=== PATIENT | female | born 1995 | race Caucasian/White ===

== ENCOUNTER 2024-03-20 04:04 | Inpatient (IN) | payer BC ==
[2024-03-20] VITALS (29 sets, daily range): BP systolic 105–163; BP diastolic 55–87; PULSE 70–109; TEMP 97.7–98.4
[~2024-03-20] VITALS: Ht 162.6 cm; Wt 77.3 kg
[~2024-03-20 04:04] MED LIST: AMOXICILLIN 8751 TAB PO; BENTYL 20MG20 MG/TAB PO; COLACE 100100 MG/CAP PO; DESOGEN 0.15 MG1 TAB PO; MOTRIN 800800 MG/TAB PO; PERCOCET 325 MG1 TA2 PO; PRENATAL TABLET PO; WELCHOL 625MG625 MG PO; ZOFRAN8 MG PO
--- NOTE | 2024-03-20 04:15 | NUR ---
ARRIVED TO LR4 WITH COMPLAINTS OF GUSH OF CLEAR FLUID APPROX 30 MIN AGO AND CRAMPING. REPORTS ACTIVE FM. NO BLEEDING EXCEPT FOR SMALL SPOTTING WITH GUSH OF FLUID. AMNIO SWAB NEGATIVE. COLLECTED ROM+
[2024-03-20] MEDS ORDERED: LR 1,000 ML IV PRN (04:45)
[2024-03-20] MEDS ORDERED: LR 1,000 ML IV SCH (05:15)
[2024-03-20] MEDS ORDERED: LR & Oxytocin 500 ML IV SCH (05:15)
[2024-03-20] MEDS ORDERED: Penicillin G Potassium 5,000,000 UNITS in NS 100 ML IV ONE (05:15)
--- NOTE | 2024-03-20 05:25 | NUR ---
PT C/O NEED TO HAVE BM. WITH PERMISSION NURSE RECHECKED CERVIX. SMALL CHANGE. PT UP TO BR AND WAS ABLE TO VOID AND PASS STOOL.
[2024-03-20 05:54] LABS: BASO # 0.1 K/mm3 (0.0-0.2); BASO % 0.5 % (0.0-2.0); EOS # 0.2 K/mm3 (0.0-0.7); EOS % 1.6 % (0.0-4.0); GRAN # 7.3 K/mm3 (1.4-6.5); GRAN % 68.7 % (42.2-75.2); HEMATOCRIT 39.2 % (37.0-47.0); HEMOGLOBIN 13.1 g/dl (12.5-16.0); LYMPH # 2.2 K/mm3 (1.2-3.4); LYMPH % 20.9 % (20.0-51.0); MEAN CELL VOLUME 86 fl (80.0-100.0); MEAN CORPUSCULAR HEMOGLOBIN 29 pg (27-31); MEAN CORPUSCULAR HGB CONC 33 g/dl (33.0-37.0); MONO # 0.8 K/mm3 (0.1-0.6); MONO % 7.6 % (1.7-9.3); PLATELET COUNT 195 K/mm3 (130-400); RED BLOOD COUNT 4.58 M/mm3 (4.10-5.30); REDCELL DISTRIBUTION WIDTH-CV 13.5 % (11.5-14.5)
[2024-03-20] MEDS ORDERED: VITAMIN B-610 MG PO (06:19)
[2024-03-20] MEDS ORDERED: ZOLOFT 100MG100 MG PO (06:20)
--- NOTE | 2024-03-20 06:50 | NUR ---
THIS RN ASSUMES CARE OF PT FROM TRAVELER LEYDA CORTEZ.
[2024-03-20] MEDS ORDERED: ROPivacaine PF 0.2% 200 ML IV ONE (08:13)
[2024-03-20] MEDS ORDERED: NS 10 ML IV ONE (08:42)
[2024-03-20] MEDS ORDERED: Lidocaine PF 2% (20 MG/ML) 5 ML VIAL ONE (08:42)
[2024-03-20] MEDS ORDERED: diphenhydrAMINE 25 MG CAP PO PRN (09:00)
[2024-03-20] MEDS ORDERED: diphenhydrAMINE 50 MG/ML 1 ML VIAL IV PRN (09:00)
[2024-03-20] MEDS ORDERED: Ondansetron 4 MG/2 ML VIAL IV PRN (09:00)
[2024-03-20] MEDS ORDERED: ePHEDrine 50 MG/10 ML VIAL IV PRN (09:00)
[2024-03-20] MEDS ORDERED: Naloxone 0.4 MG/ML VIAL IV PRN ×2 (09:00→12:45)
[2024-03-20] MEDS ORDERED: Penicillin G Potassium 2,500,000 UNITS in NS 100 ML IV SCH (09:03)
--- NOTE | 2024-03-20 09:07 | NUR ---
PT SITTING UP ON THE SIDE OF THE BED FOR EPIDURAL PLACEMENT.LR BOLUS INFUSING PER PROTOCOL.BP AND PULSE OX TRACING EVERY 5 MINUTES.EFM AND TOCO TRACING CATEGORY 1. 0825 TEST DOSE ADMINISTERED PER TOSHIA GUY.PT TOLERATED PROCEDURE WELL.
--- NOTE | 2024-03-20 09:08 | NUR ---
DR LAMAS AT BEDSIDE.SVE DILATED 9CM. 0900 AROM PERFORMED WITH CLEAR FLUID.PT TOLERATED PROCEDURE WELL.
[2024-03-20] MEDS ORDERED: Measles/Mumps/Rubella Virus Vaccine Live w Diluent 0.5 ML VIAL SQ SCH (12:45)
[2024-03-20] MEDS ORDERED: Ibuprofen 800 MG TAB PO SCH (12:45)
[2024-03-20] MEDS ORDERED: Mag/Al Hydrox/Simeth Susp 30 ML CUP PO PRN (12:45)
[2024-03-20] MEDS ORDERED: Witch Hazel 50% Pads Bulk TUB TP PRN (12:45)
[2024-03-20] MEDS ORDERED: Acetaminophen 500 MG TAB PO SCH (12:45)
[2024-03-20] MEDS ORDERED: Phenylephrine/Mineral Oil/Petrolatum 57 GM TUBE RC PRN (12:45)
[2024-03-20] MEDS ORDERED: Magnes Hydrox (MOM) 80 MG/ML 30 ML CUP PO PRN (12:45)
[2024-03-20] MEDS ORDERED: Loratadine 10 MG TAB PO PRN (12:45)
--- NOTE | 2024-03-20 13:04 | NUR ---
0990 THIS RN CALLED PT COMPLETE.DR LAMAS NOTIFIED.THIS RN BEGINS PUSHING WITH PT. 1050 DR LAMAS AT BEDSIDE.NOTED THAT BABY IS NOT DESCENDING ADEQUATELY.PHYSICIAN ORDRS TO START PITOCIN AND LABOR DOWN WITH CHANGE OF POSITIONS.PT CHANGED INTO LEFT LATERAL INTO A STIRRUP. 1110 PT MOVED INTO A RIGHT LATERAL STIRRUP POSITION 1130 PT MOVED INTO FLYING COWGIRL POSITION. 1145 DR LAMAS AT BEDSIDE.BABY MADE ADEQUATE PROGRESS IN DESCENT. ROOM PREPARED FOR DELIVERY. ALL APPROPRIATE STAFF NOTIFED. 1203 OF VIABLE MALE .NUCHAL CORD X1 REDUCED BY DR LAMAS.STRONG CRY NOTED AFTER DELIVERY AFTER STIMULATION BY NURSERY.CORD CLAMPED AND CUT BY FATHER OF THE BABY. PLACED ON MATERAL ABDOMEN. CARES ASSUMED BY CHANG SALAZAR RN. 1207 OF INTACT PLACENTA.PITOCIN BOLUS INFUSING PER PROTOCOL. 2ND DEGREE LACERATION REPAIR COMPLETED BY DR LAMAS.LOCHIA WITHIN NORMAL LIMITS.FUNDUS FIRM AT THE UMBILICUS. RED SAMMIE INSERTED BY DR LAMAS WITH 450ML CLEAR YELLOW URINE RETURN.
[2024-03-20] MEDS ORDERED: Sennosides/Docusate 8.6-50 MG TAB PO SCH (17:00)
[2024-03-20] MEDS ORDERED: traZODone 50 MG TAB PO PRN (21:00)
[2024-03-21 02:35] VITALS: BP 112/68; PULSE 76; TEMP 98.1
[2024-03-21 07:00] VITALS: BP 113/72; PULSE 82; TEMP 98.6
[2024-03-21] MEDS ORDERED: Sertraline 100 MG TAB PO SCH (09:00)
[2024-03-21 16:00] VITALS: BP 118/64; PULSE 74
[2024-03-21 22:45] VITALS: BP 113/68; PULSE 78; TEMP 97.9
[2024-03-22 07:15] VITALS: BP 115/68; PULSE 88; TEMP 98
--- NOTE | 2024-03-22 12:00 | NUR ---
DISCHARGE EDUCATION COMPLETED, HEALTH HISTORY GIVEN AND FOLLOW UP APPOINTEMTNS DISCUSSED.
== END 2024-03-22 12:30 | disposition home or self-care (01) | DRG 807 ==
LOC: LDRO 04:04 → LDR 05:14 → OB 15:00
PROVIDERS: Student in an Organized Health Care Education/Training Program; ADMIT Obstetrics & Gynecology
PROC: 10E0XZZ Delivery of Products of Conception, External Approach (ICD-10-PCS; principal; 2024-03-20)
PROC: 0KQM0ZZ Repair Perineum Muscle, Open Approach (ICD-10-PCS; 2024-03-20)
DX: O24.420 Gestational diabetes mellitus in childbirth, diet controlled (principal); Z37.0 Single live birth; O99.344 Other mental disorders complicating childbirth; F41.9 Anxiety disorder, unspecified; F32.A Depression, unspecified; O99.824 Streptococcus B carrier state complicating childbirth; O76 Abnormality in fetal heart rate and rhythm complicating labor and delivery; Z3A.38 38 weeks gestation of pregnancy; O69.81X0 Labor and delivery complicated by cord around neck, without compression, not applicable or unspecified; O70.1 Second degree perineal laceration during delivery
CPT/HCPCS: J2540; J2590; J2795; J7120

== ENCOUNTER 2024-04-03 10:49 | Emergency (ER) | payer BC ==
[~2024-04-03] VITALS: Ht 162.6 cm; Wt 68.2 kg
[~2024-04-03 10:49] MED LIST changes: +VITAMIN B-610 MG PO; +ZOLOFT 100MG100 MG PO
[2024-04-03 10:52] VITALS: TEMP 98.7
[2024-04-03] MEDS ORDERED: methylPREDNISolone Sod Succ 125 MG/2 ML VIAL IV ONE (11:15)
[2024-04-03] MEDS ORDERED: diphenhydrAMINE 50 MG/ML 1 ML VIAL IV ONE (11:15)
[2024-04-03 11:23] LABS: BASO # 0.1 K/mm3 (0.0-0.2); BASO % 0.4 % (0.0-2.0); EOS # 0.4 K/mm3 (0.0-0.7); EOS % 3.1 % (0.0-4.0); GRAN # 10.5 K/mm3 (1.4-6.5); GRAN % 86.6 % (42.2-75.2); HEMOGLOBIN 13.4 g/dl (12.5-16.0); LYMPH % 8.3 % (20.0-51.0); MEAN CELL VOLUME 88 fl (80.0-100.0); MEAN CORPUSCULAR HEMOGLOBIN 28 pg (27-31); MEAN CORPUSCULAR HGB CONC 32 g/dl (33.0-37.0); MEAN PLATELET VOLUME 9.1 fl (7.4-10.4); MONO # 0.2 K/mm3 (0.1-0.6); MONO % 1.2 % (1.7-9.3); PLATELET COUNT 415 K/mm3 (130-400); RED BLOOD COUNT 4.75 M/mm3 (4.10-5.30); REDCELL DISTRIBUTION WIDTH-CV 13.7 % (11.5-14.5)
[2024-04-03 11:36] LABS: ALBUMIN 3.5 g/dL (3.5-5.0); BILIRUBIN,TOTAL 0.6 mg/dL (0.2-1.2); CALCIUM 9.4 mg/dL (8.4-10.2); CREATININE, serum 0.81 mg/dL (0.57-1.11); POTASSIUM 4.1 mEq/L (3.5-4.5); TOTAL PROTEIN 6.8 g/dl (6.2-8.1)
[2024-04-03] MEDS ORDERED: PREDNISONE50 MG PO (12:17)
[2024-04-03 12:34] VITALS: BP 117/81; PULSE 82
== END 2024-04-03 12:35 | disposition home or self-care (01) ==
LOC: COL.ER 10:49
PROVIDERS: Nurse Practitioner
DX: R21 Rash and other nonspecific skin eruption (principal)
CPT/HCPCS: J1200; J2919

== ENCOUNTER → 2024-04-14 | Outpatient (CLI) | payer BC ==
[~2024-04-14] MED LIST changes: +PREDNISONE50 MG PO
[2024-04-14 14:39] LABS: COLLECTION METHOD CLEAN CATCH
[2024-04-14 14:42] LABS: BASO # 0.1 K/mm3 (0.0-0.2); BASO % 0.5 % (0.0-2.0); EOS % 9.6 % (0.0-4.0); GRAN # 6.3 K/mm3 (1.4-6.5); HEMATOCRIT 40.8 % (37.0-47.0); HEMOGLOBIN 13.3 g/dl (12.5-16.0); LYMPH # 2.2 K/mm3 (1.2-3.4); LYMPH % 21.6 % (20.0-51.0); MEAN CELL VOLUME 88 fl (80.0-100.0); MEAN CORPUSCULAR HEMOGLOBIN 29 pg (27-31); MEAN CORPUSCULAR HGB CONC 33 g/dl (33.0-37.0); MEAN PLATELET VOLUME 9.3 fl (7.4-10.4); MONO # 0.7 K/mm3 (0.1-0.6); MONO % 6.6 % (1.7-9.3); PLATELET COUNT 336 K/mm3 (130-400); RED BLOOD COUNT 4.62 M/mm3 (4.10-5.30); REDCELL DISTRIBUTION WIDTH-CV 14.3 % (11.5-14.5)
[2024-04-14 14:51] LABS: PH 5.5 (5.0-8.5); URINE APPEARANCE CLEAR (CLEAR/HAZY); URINE BLOOD TRACE (NEGATIVE); URINE COLOR YELLOW (YELLOW); URINE GLUCOSE NEGATIVE (NEGATIVE); URINE KETONE TRACE (NEGATIVE); URINE NITRATE NEGATIVE (NEGATIVE); URINE PROTEIN(semi-quant) NEGATIVE (NEGATIVE); URINE UROBILINOGEN 0.2 E.U/dL (0.2-1.0)
[2024-04-14 14:56] LABS: ERYTHROCYTE SEDIMENTATION RATE 3 mm/hr (0-20)
[2024-04-14 15:09] LABS: ALBUMIN 3.9 g/dL (3.5-5.0); BILIRUBIN,TOTAL 0.5 mg/dL (0.2-1.2); CALCIUM 8.7 mg/dL (8.4-10.2); CREATININE, serum 0.78 mg/dL (0.57-1.11); POTASSIUM 3.8 mEq/L (3.5-4.5); TOTAL PROTEIN 6.8 g/dl (6.2-8.1)
[2024-04-14 15:29] LABS: THYROID STIMULATING HORMONE 1.036 uIU/mL (0.350-4.940)
[2024-04-15 22:52] LABS: T3 FREE (TRI-IODOTHYRONINE) 2.6 pg/mL (1.7-3.7)
[2024-04-22 05:38] LABS: ANTISMOOTH MUSCLE ANTIBODY 1:20 (<1:20)
== END ==
LOC: COL.LAB 13:51
PROVIDERS: Nurse Practitioner Family
DX: L98.9 Disorder of the skin and subcutaneous tissue, unspecified (principal)